=== PATIENT | male | born 1970 | race Caucasian/White ===

== ENCOUNTER 2018-11-02 17:50 | Emergency (ER) | payer MEDICAID ==
[2018-11-02 17:59] VITALS: O2SAT 100
[2018-11-02] MEDS ORDERED: Fluorescein 1 mg Ophthalmic Strip ONE (18:59)
[2018-11-02] MEDS ORDERED: Tetracaine 0.5% Ophth (OR ONLY) ONE (19:01)
--- NOTE | 2018-11-02 19:38 | C.PDOC ---
History Of Present Illness Patient is a 48 year old male who presents to the ED c/o right eye pain and redness that began today at 2pm while patient was at work. Patient states that he was removing garbage when he felt debris from the garbage go into his eye. He states that he felt pain immediately and currently rates it as a 8/10 and he began tearing and developed redness in his right eye. He denies any head trauma, headaches, dizziness, weakness, visual disturbances. Chief Complaint (Nursing): Eye Problem History Per: Patient History/Exam Limitations: no limitations Onset/Duration Of Symptoms: Hrs Current Symptoms Are (Timing): Still Present Pain Scale Rating Of: 8 Quality: "Pain" Associated Symptoms: Pain Recent travel outside of the [place]: No Additional History Per: Patient Past Medical History Reviewed: Historical Data, Nursing Documentation, Vital Signs Vital Signs: Last Vital Signs Temp 98.5 F 11/02/18 17:56 Pulse 85 11/02/18 17:56 Resp 20 11/02/18 17:56 BP 143/88 11/02/18 17:56 Pulse Ox 100 11/02/18 17:56 Primary Care Provider: Arley Li - Medical History PMH: No Chronic Diseases Surgical History: No Surg Hx Family History: States: Unknown Family Hx - Social History Hx Tobacco Use: No Hx Alcohol Use: No Hx Substance Use: No - Immunization History Hx Tetanus Toxoid Vaccination: No Hx Influenza Vaccination: No Hx Pneumococcal Vaccination: No Review Of Systems Constitutional: Negative for: Fever, Chills Eyes: Positive for: Pain (right eye pain with redness and tearing), Redness. Negative for: Vision Change Respiratory: Negative for: Shortness of Breath Gastrointestinal: Negative for: Nausea, Vomiting Musculoskeletal: Negative for: Neck Pain Skin: Negative for: Rash Neurological: Negative for: Weakness, Headache, Dizziness Physical Exam - Physical Exam Appears: Non-toxic, No Acute Distress Skin: Warm, Dry Head: Atraumatic, Normacephalic Eye(s): bilateral: PERRL, EOMI, Other (VA: OD 20/50; OS 20/40. iop OD 25 OS 23; fluroscein uptake noted between 0400 and 0500 but no visble foreign body noted ) Ear(s): Bilateral: Normal Nose: Normal Oral Mucosa: Moist Tongue: Normal Appearing Lips: Normal Appearing Throat: No Erythema, No Exudate Neck: Normal ROM, Supple Chest: Symmetrical, No Deformity Cardiovascular: Rhythm Regular Respiratory: Normal Breath Sounds, No Accessory Muscle Use Gastrointestinal/Abdominal: Soft, No Tenderness Neurological/Psych: Oriented x3 ED Course And Treatment O2 Sat by Pulse Oximetry: 100 (on RA) Pulse Ox Interpretation: Normal Medical Decision Making Medical Decision Making: Plan: Tobrex 1 drop OD given now patient advised to continue tobramycin to the right eye four times a day Follow up with ophthalmology tomorrow Return to the ED if symptoms worsen Patient verbalizes understanding and is in agreement with plan. Patient is stable for discharge. Disposition Counseled Patient/Family Regarding: Studies Performed, Diagnosis, Need For Followup, Rx Given - Disposition Referrals: Joseph Loza [Staff Provider] - Disposition: HOME/ ROUTINE Disposition Time: 19:53 Condition: IMPROVED Additional Instructions: Continue tobramycin to the right eye four times a day Follow up with ophthalmology tomorrow Return to the ED if symptoms worsen Prescriptions: Tobramycin 0.3% [Tobrex 0.3% Ophth Soln] 1 drop OD QID 7 Days #1 bottle Instructions: Foreign Body in Eye (DC) Forms: PA Semi (Kazakh) - Clinical Impression Clinical Impression: Pain in eye - PA / GRAD INTERN / Resident Statement MD/DO has examined the patient and agrees with the treatment plan. - Scribe Statement The provider has reviewed the documentation as recorded by the Zach Martínez All medical record entries made by the Scribe were at my direction and personally dictated by me. I have reviewed the chart and agree that the record accurately reflects my personal performance of the history, physical exam, medical decision making, and the department course for this patient. I have also personally directed, reviewed, and agree with the discharge instructions and disposition.
[2018-11-02] MEDS ORDERED: Tobramycin 0.3% OPHT SOLN OD STA (19:47)
[2018-11-02 20:16] VITALS: BP 146/90; PULSE 68; RESP 18; TEMP 98
== END 2018-11-02 21:10 | disposition home or self-care (01) ==
LOC: C.ER 17:50
DX: H57.11 Ocular pain, right eye (principal)